=== PATIENT | male | born 1990 | race Caucasian/White ===

== ENCOUNTER 2022-01-20 22:52 | Emergency (ER) | payer BC ==
[2022-01-20] MEDS ORDERED: CLIN150C20 PO (23:09)
--- NOTE | 2022-01-20 23:12 | ED Upper Extremity ---
General Chief Complaint: Upper Extremity Stated Complaint: R ARM PAIN Nursing Triage Note: Pt complaining of right arm pain. Pt denies any injury but states his arm has been hurting since . Source: patient Exam Limitations: no limitations History of Present Illness Date Seen by Provider: Jan 20, 2022 Time Seen by Provider: 22:58 Initial Comments 31-year-old male for right elbow pain. States symptoms started last as a burning type sensation in his right forearm and right elbow. It went away over the weekend as he did not think much of it and it returned last night while he was at work. 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 No known injury. Has swelling in his right elbow for about a year, not sure what it is. Pain in his forearm is minimal at present but if he engages his muscles and only has a burning sensation in his right forearm and elbow region. Alleviated by rest. No radiation. Mild to moderate. Allergies and Home Medications Patient Home Medication List Home Medication List Reviewed: Yes Review of Systems Constitutional: no symptoms reported EENTM: no symptoms reported Respiratory: no symptoms reported Cardiovascular: no symptoms reported Gastrointestinal: no symptoms reported Genitourinary: no symptoms reported Musculoskeletal: joint pain, muscle pain Skin: no symptoms reported Psychiatric/Neurological: No Symptoms Reported Past Qwdyhbu-Qenqie-Bwbfrp Hx Patient Social History Tobacco Use?: No Use of E-Cig and/or Vaping dev: No Substance use?: No Alcohol Use?: No Pt feels they are or have been: No Family Medical History Reviewed Nursing Family Hx No Pertinent Family Hx Physical Exam Vital Signs Vital Signs - First Documented 01/20/22 22:55 Temp 37.2 Pulse 110 Resp 18 B/P (MAP) 206/119 (148) Pulse Ox 100 O2 Delivery Room Air Capillary Refill : Less Than 3 Seconds Height, Weight, BMI Height: '" Weight: lbs. oz. kg; BMI Method: General Appearance: WD/WN, no apparent distress HEENT: normal ENT inspection, TMs normal, pharynx normal Neck: non-tender, full range of motion, supple Cardiovascular: regular rate, rhythm, no edema, no gallop, no JVD, no murmur Respiratory: chest non-tender, lungs clear, normal breath sounds, no respiratory distress, no accessory muscle use Gastrointestinal: normal bowel sounds, non tender, soft, no organomegaly, no pulsatile mass Elbow/Forearm: swelling (Inflamed olecranon bursa on the right arm. There is tenderness palpation this area. Unable to elicit other symptoms on exam today.) Progress/Results/Core Measures Results/Orders Vital Signs/I&O 01/20/22 22:55 Temp 37.2 Pulse 110 Resp 18 B/P (MAP) 206/119 (148) Pulse Ox 100 O2 Delivery Room Air Blood Pressure Mean: 148 Departure Communication (Admissions) Patient is hemodynamically stable. Has clear olecranon bursitis. Will treat with antibiotics and refer to orthopedic surgery. Impression Primary Impression: Olecranon bursitis Qualified Codes: M70.21 - Olecranon bursitis, right elbow Disposition: HOME, SELF-CARE Condition: Stable Departure-Patient Inst. Referrals: NO,LOCAL PHYSICIAN (PCP) Primary Care Physician AMANDA SMITH MD Patient Instructions: Olecranon Bursitis, Olecranon Bursitis Exercises Add. Discharge Instructions: Please take the antibiotics as prescribed until they are gone. Follow-up with the bone doctor by calling to schedule an appointment. Return to the emergency department for any severe concerns. All discharge instructions reviewed with patient and/or family. Voiced understanding. Scripts Clindamycin HCl (Clindamycin HCl) 150 Mg Capsule 300 MG PO TID for 7 Days, #42 CAP Prov: SAM LARA DO 01/20/22 SAM LARA DO Jan 20, 2022 23:12
[2022-01-20 23:13] VITALS: BP 206/119
== END 2022-01-20 23:14 | disposition home or self-care (01) ==
LOC: ER FS 22:54
DX: M70.21 Olecranon bursitis, right elbow (principal); Z28.310 Unvaccinated for COVID-19
CPT/HCPCS: 99281

== ENCOUNTER 2022-03-26 20:39 | Emergency (ER) | payer BC ==
[~2022-03-26] VITALS: Ht 187.9 cm; Wt 122.4 kg
[~2022-03-26 20:39] MED LIST: CLIN150C20 PO
--- NOTE | 2022-03-26 20:45 | ED GI ---
General Stated Complaint: VOMITTING,CAN'T EAT/SLEEP History of Present Illness Date Seen by Provider: Mar 26, 2022 Time Seen by Provider: 20:45 Initial Comments 31-year-old male presents with vomiting, hard time eating and sleeping. He reports that around 4 today he was at work and had 2 episodes of vomiting. Patient denies abdominal pain. He denies any fevers chills cough. He does report that he has had recent exposure to influenza both his girlfriend and probably his son. He also reports that his kids have had strep recently in the last month. Patient denies any diarrhea. Allergies and Home Medications Allergies Coded Allergies: No Known Drug Allergies (Unverified , 03/26/22) Patient Home Medication List Home Medication List Reviewed: Yes Clindamycin HCl (Clindamycin HCl) 150 Mg Capsule, 300 MG PO TID Prescribed by: SAM LARA MD on 01/20/22 8337 Review of Systems Review of Systems Constitutional: No chills, No fever Respiratory: Denies Cough, Denies SOA at Rest Cardiovascular: Denies Chest Pain, Denies Lightheadedness Gastrointestinal: Denies Abdominal Pain, Denies Diarrhea; Nausea, Vomiting Genitourinary: No Symptoms Reported Musculoskeletal: no symptoms reported Skin: no symptoms reported Psychiatric/Neurological: No Symptoms Reported Endocrine: No Symptoms Reported Past Kdeixbb-Wbqooz-Rhsobu Hx Family Medical History No Pertinent Family Hx Physical Exam Vital Signs Vital Signs - First Documented 03/26/22 20:46 Temp 36.8 Pulse 104 Resp 20 B/P (MAP) 174/96 (122) Pulse Ox 99 O2 Delivery Room Air Capillary Refill : Height/Weight/BMI Height: '" Weight: lbs. oz. kg; BMI Method: General Appearance: WD/WN, no apparent distress Neck: full range of motion, supple Respiratory: chest non-tender, lungs clear Cardiovascular: normal peripheral pulses, regular rate, rhythm Gastrointestinal: non tender, soft Neurologic/Psychiatric: alert, normal mood/affect Skin: normal color, warm/dry Progress/Results/Core Measures Results/Orders Lab Results Laboratory Tests Test 03/26/22 21:05 Range/Units White Blood Count 11.2 H 4.3-11.0 10^3/uL Red Blood Count 5.41 4.30-5.52 10^6/uL Hemoglobin 17.3 13.3-17.7 g/dL Hematocrit 50 40-54 % Mean Corpuscular Volume 92 80-99 fL Mean Corpuscular Hemoglobin 32 25-34 pg Mean Corpuscular Hemoglobin Concent 35 32-36 g/dL Red Cell Distribution Width 12.5 10.0-14.5 % Platelet Count 176 130-400 10^3/uL Mean Platelet Volume 12.1 9.0-12.2 fL Immature Granulocyte % (Auto) 0 % Neutrophils (%) (Auto) 74 42-75 % Lymphocytes (%) (Auto) 20 12-44 % Monocytes (%) (Auto) 5 0-12 % Eosinophils (%) (Auto) 1 0-10 % Basophils (%) (Auto) 0 0-10 % Neutrophils # (Auto) 8.2 H 1.8-7.8 10^3/uL Lymphocytes # (Auto) 2.2 1.0-4.0 10^3/uL Monocytes # (Auto) 0.6 0.0-1.0 10^3/uL Eosinophils # (Auto) 0.1 0.0-0.3 10^3/uL Basophils # (Auto) 0.0 0.0-0.1 10^3/uL Immature Granulocyte # (Auto) 0.0 0.0-0.1 10^3/uL Sodium Level 141 135-145 MMOL/L Potassium Level 4.2 3.6-5.0 MMOL/L Chloride Level 99 98-107 MMOL/L Carbon Dioxide Level 26 21-32 MMOL/L Anion Gap 16 H 5-14 MMOL/L Blood Urea Nitrogen 16 7-18 MG/DL Creatinine 1.00 0.60-1.30 MG/DL Estimat Glomerular Filtration Rate 103 BUN/Creatinine Ratio 16 Glucose Level 104 70-105 MG/DL Calcium Level 9.7 8.5-10.1 MG/DL Corrected Calcium 8.5-10.1 MG/DL Total Bilirubin 1.2 H 0.1-1.0 MG/DL Aspartate Amino Transf (AST/SGOT) 45 H 5-34 U/L Alanine Aminotransferase (ALT/SGPT) 65 H 0-55 U/L Alkaline Phosphatase 96 40-136 U/L C-Reactive Protein < 0.30 <0.50 MG/DL Total Protein 8.3 H 6.4-8.2 GM/DL Albumin 5.0 H 3.2-4.5 GM/DL Lipase 31 8-78 U/L Group A Streptococcus Screen NEGATIVE NEGATIVE My Orders Orders - DIANA CANO DO Cbc With Automated Diff (03/26/22 20:50) Comprehensive Metabolic Panel (03/26/22 20:50) Lipase (03/26/22 20:50) Rapid Strep A Screen (03/26/22 20:50) Crp Fs (03/26/22 20:50) Ondansetron Injection (Zofran Injectio (03/26/22 21:00) Normal Saline 1000 Wide Open (03/26/22 20:50) Medications Given in ED Current Medications Medications Dose Ordered Sig/Jagdish Route Start Time Stop Time Status Last Admin Dose Admin Ondansetron HCl 4 mg ONCE ONCE IVP 03/26/22 21:00 03/26/22 21:01 DC 03/26/22 21:05 4 MG Vital Signs/I&O 03/26/22 20:46 Temp 36.8 Pulse 104 Resp 20 B/P (MAP) 174/96 (122) Pulse Ox 99 O2 Delivery Room Air Progress Progress Note : Progress Note Patient is feeling better following treatment. Patient reports he is just f atigued. Patient with minimal elevation of his AST ALT and bili. He has no right upper quadrant pain. Suspect this is some viral syndrome. Patient stable discharged home Departure Impression Primary Impression: Acute viral syndrome Disposition: 01 HOME, SELF-CARE Condition: Stable Departure-Patient Inst. Referrals: LORE THOMPSON MD (PCP) Primary Care Physician Patient Instructions: Viral Syndrome (DC) Add. Discharge Instructions: Clear liquid diet, advance as tolerated Scripts Ondansetron (Ondansetron Odt) 4 Mg Tab.rapdis 4 MG PO Q6H PRN for NAUSEA/VOMITING, #20 TAB 0 Refills Prov: DIANA CANO DO 03/26/22 Work/School Note: Work Release Form Date Seen in the Emergency Department: Mar 26, 2022 Return to Work: Mar 30, 2022 Restrictions: Return-No Fever (24hrs), Return-No Vomiting(24hrs) DIANA CANO DO Mar 26, 2022 20:45
[2022-03-26] MEDS ORDERED: NS IV 1000 ML 1,000 ML IV STA (20:50)
[2022-03-26] MEDS ORDERED: ONDANSETRON 4 MG/2 ML (SDV) Z0FRAN IVP ONE (21:00)
[2022-03-26 21:16] LABS: BASOPHILS % (AUTO) 0 % (0-10); EOSINOPHILS # (AUTO) 0.1 10^3/uL (0.0-0.3); EOSINOPHILS % (AUTO) 1 % (0-10); HEMATOCRIT 50 % (40-54); HEMOGLOBIN 17.3 g/dL (13.3-17.7); LYMPHOCYTES # (AUTO) 2.2 10^3/uL (1.0-4.0); LYMPHOCYTES % (AUTO) 20 % (12-44); MEAN CORPUSCULAR HEMOGLOBIN 32 pg (25-34); MEAN CORPUSCULAR HGB CONC 35 g/dL (32-36); MEAN CORPUSCULAR VOLUME 92 fL (80-99); MEAN PLATELET VOLUME 12.1 fL (9.0-12.2); MONOCYTES # (AUTO) 0.6 10^3/uL (0.0-1.0); MONOCYTES % (AUTO) 5 % (0-12); NEUTROPHILS # (AUTO) 8.2 10^3/uL (1.8-7.8); NEUTROPHILS % (AUTO) 74 % (42-75); PLATELET COUNT 176 10^3/uL (130-400); WHITE BLOOD COUNT 11.2 10^3/uL (4.3-11.0)
[2022-03-26 21:47] LABS: CARBON DIOXIDE 26 MMOL/L (21-32); CHLORIDE 99 MMOL/L (98-107); POTASSIUM 4.2 MMOL/L (3.6-5.0); SODIUM 141 MMOL/L (135-145)
[2022-03-26 21:48] LABS: ALANINE AMINOTRANSFERASE 65 U/L (0-55); ALKALINE PHOSPHATASE 96 U/L (40-136); BILIRUBIN,TOTAL 1.2 MG/DL (0.1-1.0); BUN/CREATININE RATIO 16; CALCIUM 9.7 MG/DL (8.5-10.1); GFR ESTIMATED 103; GLUCOSE 104 MG/DL (70-105); LIPASE 31 U/L (8-78); TOTAL PROTEIN 8.3 GM/DL (6.4-8.2)
[2022-03-26] MEDS ORDERED: ONDA4TAB11 PO (22:07)
[2022-03-26 22:11] VITALS: BP 168/90
== END 2022-03-26 22:11 | disposition home or self-care (01) ==
LOC: EDUNIT# 20:39 → ER FS 20:40
DX: B34.9 Viral infection, unspecified (principal); R11.10 Vomiting, unspecified; R53.83 Other fatigue; E80.7 Disorder of bilirubin metabolism, unspecified; R74.01 Elevation of levels of liver transaminase levels; Z28.310 Unvaccinated for COVID-19
CPT/HCPCS: 36415; 80053; 83690; 85025; 86141; 87430; 99282

== ENCOUNTER 2022-05-26 16:35 | Emergency (ER) | payer BC ==
[~2022-05-26] VITALS: Ht 187 cm; Wt 125.0 kg
[~2022-05-26 16:35] MED LIST changes: +ONDA4TAB11 PO
[2022-05-26] MEDS ORDERED: KETO10TA PO (16:58)
[2022-05-26] MEDS ORDERED: KETOROLAC 15 MG/ML VIAL IM ONE (17:00)
--- NOTE | 2022-05-26 17:00 | ED Back Pain ---
General Chief Complaint: Back Problems Stated Complaint: LOWER BK PAIN, NERVE PAIN, HARD TO MOVE Nursing Triage Note: LOW BACK PAIN MORE SO ON THE LEFT SIDE THAT RADIATES DOWN THE BACK OF HIS LEG AND 2 OF HIS TOES FEEL NUMB. Source of Information: Patient Exam Limitations: No Limitations History of Present Illness Date Seen by Provider: May 26, 2022 Time Seen by Provider: 16:37 Initial Comments 31-year-old male presents for bilateral low back pain. Symptoms started on the left side a couple of days ago and are now bilateral. He has a chronic foot drop on the left side for several years after an injury at that time. No new injuries however he states he has flares of back pain every now and then. He has been using ibuprofen and Tylenol without much relief. He denies any loss of bowel or bladder control. Pain is dull throbbing worse with movement. Allergies and Home Medications Allergies Coded Allergies: No Known Drug Allergies (Unverified , 03/26/22) Patient Home Medication List Home Medication List Reviewed: Yes Ketorolac Tromethamine (Ketorolac Tromethamine) 10 Mg Tablet, 10 MG PO TID Prescribed by: SAM LARA MD on 05/26/22 1658 Ondansetron (Ondansetron Odt) 4 Mg Tab.rapdis, 4 MG PO Q6H PRN for NAUSEA/VOMITING Prescribed by: DIANA CANO on 03/26/227 Review of Systems Constitutional: no symptoms reported EENTM: no symptoms reported Respiratory: no symptoms reported Cardiovascular: no symptoms reported Gastrointestinal: no symptoms reported Genitourinary: no symptoms reported Musculoskeletal: back pain Skin: no symptoms reported Psychiatric/Neurological: No Symptoms Reported Past Wuekmfa-Bsqclq-Abdcnu Hx Patient Social History Tobacco Use?: Yes Tobacco type used: Cigarettes Smoking Status: Current Everyday Smoker Use of E-Cig and/or Vaping dev: No Substance use?: No Alcohol Use?: No Pt feels they are or have been: No Immunizations Up To Date First/Initial COVID19 Vaccinat: Unvaccinated Second COVID19 Vaccination Gavin: Unvaccinated Third COVID19 Vaccination Date: Unvaccinated Past Medical History Surgery/Hospitalization HX: Ear surgery TONSILECTOMY LEFT KNEE SCOPE Family Medical History No Pertinent Family Hx Physical Exam Vital Signs Vital Signs - First Documented 05/26/22 16:48 Temp 36.9 Pulse 121 Resp 18 B/P (MAP) 157/91 (113) Pulse Ox 98 O2 Delivery Room Air Capillary Refill : Less Than 3 Seconds Height, Weight, BMI Height: '" Weight: lbs. oz. kg; 35.00 BMI Method: General Appearance: No Apparent Distress, WD/WN HEENT: Normal ENT Inspection, Pharynx Normal Neck: Full Range of Motion, Non Tender, Supple Cardiovascular: Regular Rate, Rhythm, No Murmur, Normal Peripheral Pulses Respiratory: Chest Non Tender, Lungs Clear, Normal Breath Sounds, No Accessory Muscle Use, No Respiratory Distress Gastrointestinal: Normal Bowel Sounds, No Organomegaly, No Pulsatile Mass, Non Tender, Soft Back: Normal Inspection, No CVA Tenderness, Other (Mild bilateral paraspinal tenderness.) Neurologic/Psychiatric: Alert, Oriented x3, No Motor/Sensory Deficits Skin: Normal Color, Warm/Dry Lymphatic: No Adenopathy Progress/Results/Core Measures Results/Orders My Orders Orders - SAM LARA DO Ketorolac Injection (Toradol Injection) (05/26/22 17:00) Vital Signs/I&O 05/26/22 05/26/22 16:48 17:01 Temp 36.9 36.9 Pulse 121 121 Resp 18 18 B/P (MAP) 157/91 (113) 157/91 Pulse Ox 98 98 O2 Delivery Room Air Room Air Blood Pressure Mean: 113 Departure Communication (Admissions) Patient is hemodynamically stable. No red flag symptoms. No saddle anesthesia no evidence for cord syndrome. This appears to be a exacerbation of his chronic type symptoms. He will be discharged home in stable condition with supportive care. Impression Primary Impression: Low back pain Qualified Codes: M54.50 - Low back pain, unspecified Disposition: HOME, SELF-CARE Condition: Stable Departure-Patient Inst. Referrals: LORE THOMPSON MD (PCP/Family) Primary Care Physician Patient Instructions: Back Muscle Strain (DC) Add. Discharge Instructions: Take the anti-inflammatory medication as prescribed as needed. Do not take any other anti-inflammatory medicine while taking this. This would include Motrin Aleve or ibuprofen. You may take Tylenol containing products in addition to this. Take a couple of days off work and rest. Increase your fluids. I recommend you follow-up with your primary doctor for possible MRI given the chronic nature of your left foot symptoms. Return to the emergency department for any severe concerns. All discharge instructions reviewed with patient and/or family. Voiced understanding. Scripts Ketorolac Tromethamine (Ketorolac Tromethamine) 10 Mg Tablet 10 MG PO TID for Pain for 3 Days, #9 TAB Prov: SAM LARA DO 05/26/22 Work/School Note: Work Release Form Date Seen in the Emergency Department: May 26, 2022 Return to Work: May 29, 2022 Restrictions: No Restrictions SAM LARA DO May 26, 2022 16:59
[2022-05-26 17:01] VITALS: BP 157/91
== END 2022-05-26 17:05 | disposition home or self-care (01) ==
LOC: EDUNIT# 16:35 → ER FS 16:37
DX: M54.50 Low back pain, unspecified (principal); F17.210 Nicotine dependence, cigarettes, uncomplicated; Z28.310 Unvaccinated for COVID-19
CPT/HCPCS: 99284